=== PATIENT | male | born 1995 | race Caucasian/White ===

== ENCOUNTER 2019-05-31 09:55 | Observation (INO) ==
[2019-05-31] MEDS ORDERED: methylPREDNISolone 125 MG/2 ML VIAL IV STA (10:27)
[2019-05-31] MEDS ORDERED: ALBUT/IPRATROP 3MG/0.5MG NEB 3 ML VIAL NEB ONE (10:27)
[2019-05-31] MEDS ORDERED: SODIUM CHLORIDE 0.9% 1000ML 1,000 ML IV SCH (10:30)
[2019-05-31 10:58] LABS: Base Excess VBG 3.2 mEq/L; Basophils # (auto) 0.02 K/uL (0-0.2); Basophils % (auto) 0.2 %; Eosinophils # (auto) 0.55 K/uL (0-0.5); Eosinophils % (auto) 6.6 %; HCO3 VBG 28 mmol/L; Hematocrit (blood only) 42.1 % (42-52); Hemoglobin 14.6 g/dL (14.0-18.0); Immature Granulocytes # (auto) 0.02 K/uL (0.00-0.02); Immature Granulocytes % (auto) 0.2 %; Lymphocytes # (auto) 1.46 K/uL (1.2-3.4); Lymphocytes % (auto) 17.6 %; Mean Corpuscular Hemoglobin 31.1 pg (25-34); Mean Corpuscular Hgb Conc 34.7 g/dL (32-36); Mean Corpuscular Volume 89.8 fL (80-100); Mean Platelet Volume 10.3 fL (7.4-10.4); Monocytes # (auto) 0.69 K/uL (0.11-0.59); Monocytes % (auto) 8.3 %; Neutrophils # (auto) 5.55 K/uL (1.4-6.5); Neutrophils % (auto) 67.1 %; Oxygen Saturation VBG < 60.0 %; PCO2 VBG 42 mmHg (38-50); PO2 VBG 29 mmHg; Platelet Count 227 K/uL (130-400); RDW Coefficient of Variation 12.8 % (11.5-14.5); RDW Standard Deviation 41.4 fL (36.4-46.3); Red Blood Count 4.69 M/uL (4.7-6.1); White Blood Count 8.29 K/uL (4.8-10.8); pH VBG 7.44 (7.36-7.41)
--- NOTE | 2019-05-31 11:01 | XRay Report ---
XR chest 1V portable HISTORY: 24 years-old Male sob wheezing acute wheezing with shortness of breath COMPARISON: None available TECHNIQUE: Portable AP view of the chest FINDINGS: Cardiomediastinal and hilar silhouettes are within normal limits. Lungs are mildly hyperinflated. The re is no pneumothorax, pleural effusion, focal airspace consolidation or overt pulmonary edema. The b ones of the chest appear grossly intact. IMPRESSION: No acute process. The above report was generated using voice recognition software. It may contain grammatical, syntax o r spelling errors. Electronically signed by: Chico Davila M.D. 05/31/2019 10:59 AM
[2019-05-31 11:15] LABS: BUN Creatinine Ratio 11.9 (10-20); Calcium 8.9 mg/dl (8.5-10.1); Creatinine Clr Calc Pharmacy 93.3 ml/min; Est GFR (African American) 123.3; Est GFR (Non-African American) 106.4
[2019-05-31 12:06] LABS: Influenza A virus by PCR Neg for Influ A (Neg); Influenza B virus by PCR Neg for Influ B (Neg)
--- NOTE | 2019-05-31 12:51 | History & Physical Report ---
Date of Service May 31, 2019 Assessment & Plan (1) Asthma exacerbation: Will admit patient under observation to telemetry floor. Add IV steroids. Add Zithromax. DuoNeb breathing treatment per protocol. 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 Titrate nasal cannula oxygen to keep pulse ox more than 92%. Present on Admission?: Yes (2) Bronchial asthma: Present on Admission?: Yes (3) SOB (shortness of breath): Present on Admission?: Yes (4) Wheezing: Present on Admission?: Yes (5) Sinus tachycardia: Secondary to DuoNeb breathing treatment. Monitor on telemetry floor. Present on Admission?: Yes (6) Hypoxia: Titrate nasal cannula oxygen to keep pulse ox more than 92%. History of Present Illness Chief Complaint: Shortness of breath and wheezing Primary Care Provider: NO PCP The patient is 24-year-old male with history of bronchial asthma since childhood. He is complaining of increasing shortness of breath and wheezing since yesterday. No fever. He has occasional cough with mucoid sputum. When the EMS arrived his pulse ox was 87% on room air. The further work-up done in the ER showed that patient has asthma exa cerbation. He was started on IV steroids and DuoNeb breathing treatment and IV fluids. Patient had sinus tachycardia after DuoNeb breathing treatment. He is currently feeling better. He will be admitted under observation for further evaluation and management. He smokes hookah socially. Patient did not had any asthma attacks for the last 7 years since he moved here from [facility]. Allergies Allergy/AdvReac Type Severity Reaction Status Date / Time No Known Allergies Allergy Unverified 05/31/19 11:16 Home Medications Home Medications Medication Instructions Recorded Confirmed Type No Known Home Medications 05/31/19 05/31/19 History Past Med/Surg History Social History Feels Safe at Home: Yes Smoking Status: Current some day smoker Review of Systems Review of Systems: All systems reviewed & are unremarkable except as noted in HPI & below Respiratory: + cough, + chest congestion, + dyspnea and + wheezing Physical Exam Physical Exam: GENERAL : No acute distress EYES: No icterus, gaze conjugate NOSE: No evidence of epistaxis MOUTH: No lesions or candidiasis, mucosa moist NECK: Supple LUNGS: Decreased breath sounds at bases. Few rhonchi noted bilaterally. HEART: Regular sinus tachycardia noted. ABDOMEN: Soft, NT, ND, BS Present EXTREMITIES: No LE edema, pedal pulses intact NEURO: A&OX3 Results & Data Vital Signs (Past 12 Hours) Vital Signs Temp Pulse Pulse Resp BP Pulse Ox 05/31/19 11:01 100 05/31/19 10:51 92 H 18 99 05/31/19 10:11 94 05/31/19 10:03 98.6 F 108 H 22 137/76 93 05/31/19 10:00 104 H 19 124/85 93 Laboratory Results 05/31/19 10:42 05/31/19 10:42 05/31/19 05/31/19 05/31/19 Range/Units 11:09 10:42 10:42 WBC (4.8-10.8) K/uL RBC (4.7-6.1) M/uL Hgb (14.0-18.0) g/dL Hct (42-52) % MCV (80-100) fL MCH (25-34) pg MCHC (32-36) g/dL RDW Std Deviation (36.4-46.3) fL RDW Coeff of [place] (11.5-14.5) % Plt Count (130-400) K/uL MPV (7.4-10.4) fL Immature Gran % (Auto) % Neut % (Auto) % Lymph % (Auto) % [place] % (Auto) % Eos % (Auto) % Baso % (Auto) % Immature Gran # (Auto) (0.00-0.02) K/uL Neut # (Auto) (1.4-6.5) K/uL Lymph # (Auto) (1.2-3.4) K/uL [place] # (Auto) (0.11-0.59) K/uL Eos # (Auto) (0-0.5) K/uL Baso # (Auto) (0-0.2) K/uL VBG pH 7.44 H (7.36-7.41) VBG pCO2 42 (38-50) mmHg VBG pO2 29 mmHg VBG HCO3 28 mmol/L VBG O2 Saturation < 60.0 % VBG Base Excess 3.2 mEq/L Barometric Pressure 736.2 mm/Hg Sodium (136-145) mmol/L Potassium (3.5-5.1) mmol/L Chloride (98-107) mmol/L Carbon Dioxide (21-32) mmol/L Anion Gap (3-11) BUN (7-18) mg/dl Creatinine (0.6-1.4) mg/dl Est Cr Clr Drug Dosing ml/min Est GFR ( Amer) Est GFR (Non-Af Amer) BUN/Creatinine Ratio (10-20) Glucose (70-99) mg/dl Lactate 1.1 (0.4-2.0) mmol/L Calcium (8.5-10.1) mg/dl Influenza Type A (PCR) Neg for Influ A (Neg) Influenza Type B (PCR) Neg for Influ B (Neg) 05/31/19 05/31/19 Range/Units 10:42 10:42 WBC 8.29 (4.8-10.8) K/uL RBC 4.69 L (4.7-6.1) M/uL Hgb 14.6 (14.0-18.0) g/dL Hct 42.1 (42-52) % MCV 89.8 (80-100) fL MCH 31.1 (25-34) pg MCHC 34.7 (32-36) g/dL RDW Std Deviation 41.4 (36.4-46.3) fL RDW Coeff of [place] 12.8 (11.5-14.5) % Plt Count 227 (130-400) K/uL MPV 10.3 (7.4-10.4) fL Immature Gran % (Auto) 0.2 % Neut % (Auto) 67.1 % Lymph % (Auto) 17.6 % [place] % (Auto) 8.3 % Eos % (Auto) 6.6 % Baso % (Auto) 0.2 % Immature Gran # (Auto) 0.02 (0.00-0.02) K/uL Neut # (Auto) 5.55 (1.4-6.5) K/uL Lymph # (Auto) 1.46 (1.2-3.4) K/uL [place] # (Auto) 0.69 H (0.11-0.59) K/uL Eos # (Auto) 0.55 H (0-0.5) K/uL Baso # (Auto) 0.02 (0-0.2) K/uL VBG pH (7.36-7.41) VBG pCO2 (38-50) mmHg VBG pO2 mmHg VBG HCO3 mmol/L VBG O2 Saturation % VBG Base Excess mEq/L Barometric Pressure mm/Hg Sodium 138 (136-145) mmol/L Potassium 4.0 (3.5-5.1) mmol/L Chloride 105 (98-107) mmol/L Carbon Dioxide 27 (21-32) mmol/L Anion Gap 6.0 (3-11) BUN 12 (7-18) mg/dl Creatinine 1.00 (0.6-1.4) mg/dl Est Cr Clr Drug Dosing 93.3 ml/min Est GFR ( Amer) 123.3 Est GFR (Non-Af Amer) 106.4 BUN/Creatinine Ratio 11.9 (10-20) Glucose 85 (70-99) mg/dl Lactate (0.4-2.0) mmol/L Calcium 8.9 (8.5-10.1) mg/dl Influenza Type A (PCR) (Neg) Influenza Type B (PCR) (Neg) Diagnostic Findings XR chest 1V portable HISTORY: 24 years-old Male sob wheezing acute wheezing with shortness of breath COMPARISON: None available TECHNIQUE: Portable AP view of the chest FINDINGS: Cardiomediastinal and hilar silhouettes are within normal limits. Lungs are mildly hyperinflated. There is no pneumothorax, pleural effusion, focal airspace consolidation or overt pulmonary edema. The bones of the chest appear grossly intact. IMPRESSION: No acute process. Code Status & VTE Plan Code Status Full code VTE Prophylaxis Plan VTE Prophylaxis will be ordered: Yes PG Care Time/CCT Total # of Minutes Spent Total Time Spent with Patient: Total time spent is greater than 50% in coordination of care (as documented) at patient's floor/unit and/or counseling patient: 60 min
[2019-05-31] MEDS ORDERED: ACETAMINOPHEN 325 MG TAB PO PRN (13:25)
[2019-05-31] MEDS ORDERED: ONDANSETRON INJ 2 MG/ML 2 ML VIAL IV PRN (13:25)
[2019-05-31] MEDS ORDERED: MAGNESIUM HYDROXIDE SUSP 30 ML UDC PO PRN (13:25)
[2019-05-31] MEDS ORDERED: ALUMINUM/MAGNESIUM SUSP 30 ML UDC PO PRN (13:25)
[2019-05-31] MEDS ORDERED: INFLUENZA ADMINISTRATION CHARGE ONE (14:00)
[2019-05-31] MEDS ORDERED: INFLUENZA VIRUS QUAD VACCINE 0.5 ML SYR IM ONE (14:00)
[2019-05-31] MEDS: ENOXAPARIN INJ 30 MG/0.3 ML SYR SQ SCH (14:21)
[2019-05-31] MEDS: AZITHROMYCIN 250 MG TAB PO SCH (14:21)
[2019-05-31] MEDS: FLUTICASONE/SALMETEROL 250/50 (ADVAIR) 14 PUFF/1 INHALER INH SCH ×2 (14:22→21:22)
[2019-05-31] MEDS: ALBUT/IPRATROP 3MG/0.5MG NEB 3 ML VIAL NEB SCH ×2 (15:04→19:07)
[2019-05-31] MEDS: methylPREDNISolone 40 MG in SYRINGE 0 ML IV SCH ×2 (16:36→21:22)
--- NOTE | 2019-05-31 16:51 | Emergency Department Note ---
Entered by Johnathan Elias acting as a scribe for Abhinav Fernandez History of Present Illness General Chief complaint: Illness Time Seen by Provider: 05/31/19 10:15 Source: patient History of Present Illness Onset (ago): day(s) 2 Location: chest Pain Consistency: + other (multiple episodes) Maximum Pain Intensity: 5 Quality: + other (shortness of breath) Associated symptoms: + chest pain (slight) and + other (+throat pain; -coughing up blood) The patient is a 24 year old male, with past medical history of asthma, who presents to the Emergency Room with complaints of multiple episodes of shortness of breath over the last two days. The patient states he woke up yesterday morning with difficulty breathing. The patient states his breathing improved as yesterday progressed, but the patient notes he woke up this morning with difficu lty breathing once again. The patient also notes of slight chest pain and throat pain. The patient denies coughing up blood, recent travel, recent surgeries, or using hormones/steroid creams. The patient states he has never been intubated or been in the ICU for his asthma. The patient states that the last time he took medications for his asthma was when he was 12 years old. 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 and A total of 10 systems reviewed and were otherwise negative Physical Exam Vital Signs Vital Signs - 24 hr 05/31/19 10:00 05/31/19 10:03 05/31/19 10:11 Temperature 37 C Temperature Source Oral Sepsis Recent Fever Within 48 Hours No Sepsis Action Taken by Nursing No Action Required Pulse Rate 104 H 108 H Pulse Rate [Apical] Pulse Rate from SpO2 Sensor 103 H Respiratory Rate 19 22 Respiratory Effort / Characteristics Non-Labored Spontaneous Respiratory Depth Normal Blood Pressure 124/85 137/76 Blood Pressure [Left Arm] Blood Pressure Mean 98 96 Blood Pressure Mean [Left Arm] Blood Pressure Position Sitting Pulse Oximetry 93 93 94 Oxygen Delivery Method Room Air Room Air Nasal Cannula Oxygen Flow Rate 2 05/31/19 10:51 05/31/19 11:01 05/31/19 12:25 Temperature Temperature Source Sepsis Recent Fever Within 48 Hours Sepsis Action Taken by Nursing Pulse Rate Pulse Rate [Apical] 92 H 125 H Pulse Rate from SpO2 Sensor Respiratory Rate 18 20 Respiratory Effort / Characteristics Non-Labored Spontaneous Non-Labored Spontaneous Respiratory Depth Normal Blood Pressure Blood Pressure [Left Arm] 124/57 L Blood Pressure Mean Blood Pressure Mean [Left Arm] 79 Blood Pressure Position Pulse Oximetry 99 100 98 Oxygen Delivery Method Nasal Cannula Nebulizer Room Air Oxygen Flow Rate 2 GENERAL: He is oriented to person, place, and time. He appears well-developed and well-nourished. He does not appear distressed. HENT: Exam performed. - Head: Normocephalic and atraumatic. - Right Ear: External ear normal. No mastoid tenderness. - Left Ear: External ear normal. No mastoid tenderness. - Mouth/Throat: The oropharynx is clear and moist. No trismus in the jaw. No dental abscesses or uvula swelling. No oropharyngeal exudate or tonsillar abscesses. EYES: Conjunctivae and EOM are normal. Pupils are equal, round, and reactive to light. Right eye exhibits no discharge. Left eye exhibits no discharge. No scleral icterus. NECK: Normal range of motion. Neck supple. No JVD present. No spinous process tenderness present. No carotid bruit present. No rigidity. No tracheal deviation and normal range of motion present. No Brudzinski's sign and no Kernig's sign noted. CV: Normal rate, regular rhythm, normal heart sounds and intact distal pulses. There is no peripheral edema. Palpable radial pulses bue. PULM/CHEST: Effort normal. No respiratory distress. No stridor. Bilateral expiratory wheezes. He has no rales. - Chest Wall: He exhibits no tenderness. ABD: The abdomen is soft. Bowel sounds are normal. He has no distension. No mass is present. There is no tenderness. There is no rebound, no guarding, no Irving's sign and no tenderness at McBurney's point. Rovsig negative. MUSC/SKEL: Normal range of motion. There is no peripheral edema, tenderness or deformity. LYMPH: No cervical adenopathy. NEURO: He is alert and oriented to person, place, and time. He has normal strength. No cranial nerve deficit or sensory deficit. Coordination and gait normal. GCS eye subscore is 4. GCS verbal subscore is 5. GCS motor subscore is 6. Cerebellar tests wnl. SKIN: Skin is warm and dry. He is not diaphoretic. PSYCH: He has a normal mood and affect. Behavior is normal. Judgment and thought content normal. Course 1024: Past medical records reviewed. The patient was evaluated in room C10. A complete history and physical exam was performed. Patient was found to be hypoxic on room air. He was placed on supplemental oxygen via nasal cannula which improved his oxygen saturation. Patient has severe bilateral wheezing. We will give the patient hour-long DuoNeb treatment as well as steroids and then reassess the patient. 1214: Status post hour long Duoneb - Patient's wheezing has improved, however still scant bilateral expiratory wheezes noted. He is tachycardic. The patient's lab and imaging are within normal limits. The patient will be admitted for status asthmaticus. I reviewed the patient's case with Dr. Nobles-[facility] Hospitalist. Dr. Nobles will evaluate the patient for further management. Consultations Consultation #1: I reviewed the patient's case with Dr. Nobles-[facility] Hospitalist. Dr. Nobles will evaluate the patient for further management. Time: 12:16 Administered Medications Albuterol (Duoneb) 3 ml NEB QIDR [facility] Stop: 06/30/19 14:59 Last Admin: 05/31/19 15:04 Dose: 3 ml Documented by: [id number] Azithromycin (Zithromax) 500 mg PO QAM [facility] Stop: 06/07/19 13:59 Last Admin: 05/31/19 14:21 Dose: 500 mg Documented by: [id number] Enoxaparin Sodium (Lovenox) 30 mg SQ Q24H ROLA Stop: 06/30/19 13:59 Last Admin: 05/31/19 14:21 Dose: 30 mg Documented by: [id number] Methylprednisolone 40 mg/ (Syringe) 0.64 mls @ 1.5 mls/min IV Q6H ROLA Stop: 06/30/19 15:59 Last Admin: 05/31/19 16:36 Dose: 1.5 mls/min Documented by: [id number] Fluticasone/Salmeterol (Advair Diskus 250/50) 1 puffs INH BID ROLA Stop: 06/30/19 13:24 Last Admin: 05/31/19 14:22 Dose: 1 puffs Documented by: [id number] Discontinued Medications Albuterol (Duoneb) 12 ml NEB ONE ONE Stop: 05/31/19 10:28 Last Admin: 05/31/19 10:51 Dose: 12 ml Documented by: [id number] Sodium Chloride (Nss 1000ml) 1,000 mls @ 125 mls/hr IV .Q8H ROLA Stop: 06/30/19 10:29 Last Infusion: 05/31/19 13:12 Dose: 0 mls/hr Documented by: [id number] Admin: 05/31/19 11:06 Dose: 125 mls/hr Documented by: [id number] Methylprednisolone (Solumedrol) 125 mg IV NOW STA Stop: 05/31/19 10:28 Last Admin: 05/31/19 11:06 Dose: 125 mg Documented by: [id number] Medical Decision Making Medical Records Attestation: I reviewed the patient's medical records. Home Medications Current Medication List: was personally reviewed by me Laboratory Data Attestation: I reviewed the patient's lab results. Result diagrams: 05/31/19 10:42 05/31/19 10:42 Lab Results 05/31/19 05/31/19 05/31/19 Range/Units 10:42 10:42 10:42 WBC 8.29 (4.8-10.8) K/uL RBC 4.69 L (4.7-6.1) M/uL Hgb 14.6 (14.0-18.0) g/dL Hct 42.1 (42-52) % MCV 89.8 (80-100) fL MCH 31.1 (25-34) pg MCHC 34.7 (32-36) g/dL RDW Std Deviation 41.4 (36.4-46.3) fL RDW Coeff of [place] 12.8 (11.5-14.5) % Plt Count 227 (130-400) K/uL MPV 10.3 (7.4-10.4) fL Immature Gran % (Auto) 0.2 % Neut % (Auto) 67.1 % Lymph % (Auto) 17.6 % [place] % (Auto) 8.3 % Eos % (Auto) 6.6 % Baso % (Auto) 0.2 % Immature Gran # (Auto) 0.02 (0.00-0.02) K/uL Neut # (Auto) 5.55 (1.4-6.5) K/uL Lymph # (Auto) 1.46 (1.2-3.4) K/uL [place] # (Auto) 0.69 H (0.11-0.59) K/uL Eos # (Auto) 0.55 H (0-0.5) K/uL Baso # (Auto) 0.02 (0-0.2) K/uL VBG pH (7.36-7.41) VBG pCO2 (38-50) mmHg VBG pO2 mmHg VBG HCO3 mmol/L VBG O2 Saturation % VBG Base Excess mEq/L Barometric Pressure mm/Hg Sodium 138 (136-145) mmol/L Potassium 4.0 (3.5-5.1) mmol/L Chloride 105 (98-107) mmol/L Carbon Dioxide 27 (21-32) mmol/L Anion Gap 6.0 (3-11) BUN 12 (7-18) mg/dl Creatinine 1.00 (0.6-1.4) mg/dl Est Cr Clr Drug Dosing 93.3 ml/min Est GFR ( Amer) 123.3 Est GFR (Non-Af Amer) 106.4 BUN/Creatinine Ratio 11.9 (10-20) Glucose 85 (70-99) mg/dl Lactate 1.1 (0.4-2.0) mmol/L Calcium 8.9 (8.5-10.1) mg/dl Influenza Type A (PCR) (Neg) Influenza Type B (PCR) (Neg) 05/31/19 05/31/19 Range/Units 10:42 11:09 WBC (4.8-10.8) K/uL RBC (4.7-6.1) M/uL Hgb (14.0-18.0) g/dL Hct (42-52) % MCV (80-100) fL MCH (25-34) pg MCHC (32-36) g/dL RDW Std Deviation (36.4-46.3) fL RDW Coeff of [place] (11.5-14.5) % Plt Count (130-400) K/uL MPV (7.4-10.4) fL Immature Gran % (Auto) % Neut % (Auto) % Lymph % (Auto) % [place] % (Auto) % Eos % (Auto) % Baso % (Auto) % Immature Gran # (Auto) (0.00-0.02) K/uL Neut # (Auto) (1.4-6.5) K/uL Lymph # (Auto) (1.2-3.4) K/uL [place] # (Auto) (0.11-0.59) K/uL Eos # (Auto) (0-0.5) K/uL Baso # (Auto) (0-0.2) K/uL VBG pH 7.44 H (7.36-7.41) VBG pCO2 42 (38-50) mmHg VBG pO2 29 mmHg VBG HCO3 28 mmol/L VBG O2 Saturation < 60.0 % VBG Base Excess 3.2 mEq/L Barometric Pressure 736.2 mm/Hg Sodium (136-145) mmol/L Potassium (3.5-5.1) mmol/L Chloride (98-107) mmol/L Carbon Dioxide (21-32) mmol/L Anion Gap (3-11) BUN (7-18) mg/dl Creatinine (0.6-1.4) mg/dl Est Cr Clr Drug Dosing ml/min Est GFR ( Amer) Est GFR (Non-Af Amer) BUN/Creatinine Ratio (10-20) Glucose (70-99) mg/dl Lactate (0.4-2.0) mmol/L Calcium (8.5-10.1) mg/dl Influenza Type A (PCR) Neg for Influ A (Neg) Influenza Type B (PCR) Neg for Influ B (Neg) Imaging Data Radiologist's Impression: Radiology results as stated below per my review and the radiologist's interpretation: XR chest 1V portable HISTORY: 24 years-old Male sob wheezing acute wheezing with shortness of breath COMPARISON: None available TECHNIQUE: Portable AP view of the chest FINDINGS: Cardiomediastinal and hilar silhouettes are within normal limits. Lungs are mildly hyperinflated. There is no pneumothorax, pleural effusion, focal airspace consolidation or overt pulmonary edema. The bones of the chest appear grossly intact. IMPRESSION: No acute process. The above report was generated using voice recognition software. It may contain grammatical, syntax or spelling errors. Electronically signed by: Chico Davila M.D. 05/31/2019 10:59 AM ECG Data Attestation: I personally reviewed and interpreted this ECG as follows: Indication: SOB/dyspnea Rate (beats per minute): 100 Rhythm: sinus rhythm Findings: + other ([place]/QRS/QT within normal limits; peaked T waves in lead 3 or [address] ); no ST depression and no ST elevation Blood Pressure Blood Pressure Findings: Low blood pressure Blood Pressure Disposition: further management by hospitalist AILYN Narrative 1024: Past medical records reviewed. The patient was evaluated in room C10. A complete history and physical exam was performed. Patient was found to be hypoxic on room air. He was placed on supplemental oxygen via nasal cannula which improved his oxygen saturation. Patient has severe bilateral wheezing. We will give the patient hour-long DuoNeb treatment as well as steroids and then reassess the patient. 1214: Status post hour long Duoneb - Patient's wheezing has improved, however still scant bilateral expiratory wheezes noted. He is tachycardic. The patient's lab and imaging are within normal limits. The patient will be admitted for status asthmaticus. I reviewed the patient's case with Dr. Nobles-[facility] Hospitalist. Dr. Nobles will evaluate the patient for further management. Impression & Plan Hypoxia, Asthmaticus, status Critical Care Time Critical Care Time: Yes Total Critical Care Time: 61 I have personally spent 61 minutes of critical care time in the direct management of this patient. This includes bedside care, interpretation of diagnostic studies, and testing, discussion with consultants, patient, and family members, and other required patient management activities. This 61 minutes is in excess of all separately billable procedures. Discharge Plan Visit Data *Final* Discharge Date/Time: 05/31/19 12:51 Chief Complaint: Illness ED Provider: Abhinav Fernandez Discharge Problem: Hypoxia, Asthmaticus, status Patient Disposition: Admitted As Inpatient Discharge Instructions Interventions: ED Discharge Assessment Last Done: 05/31/19 12:51 The scribe's documentation has been prepared under my direction and personally reviewed by me in its entirety. I confirm that the note above accurately refle cts all work, treatment, procedures, and medical decision making performed by me.
[2019-06-01] MEDS: methylPREDNISolone 40 MG in SYRINGE 0 ML IV SCH ×2 (04:56→10:58)
[2019-06-01] MEDS: ALBUT/IPRATROP 3MG/0.5MG NEB 3 ML VIAL NEB SCH ×3 (07:08→15:11)
[2019-06-01] MEDS: AZITHROMYCIN 250 MG TAB PO SCH (08:32)
[2019-06-01] MEDS: FLUTICASONE/SALMETEROL 250/50 (ADVAIR) 14 PUFF/1 INHALER INH SCH (08:32)
[2019-06-01 11:58] VITALS: BP 137/69; TEMP 98.4
[2019-06-01] MEDS: ENOXAPARIN INJ 30 MG/0.3 ML SYR SQ SCH (14:41)
[2019-06-01 15:12] VITALS: O2SAT 100
[2019-06-01 15:47] VITALS: PULSE 73
--- NOTE | 2019-06-01 18:10 | Discharge Summary ---
Date of Service June 01, 2019 Admission HPI Per Admitting Provider The patient is 24-year-old male with history of bronchial asthma since childhood. He is complaining of increasing shortness of breath and wheezing since yesterday. No fever. He has occasional cough with mucoid sputum. When the EMS arrived his pulse ox was 87% on room air. The further work-up done in the ER showed that patient has asthma exacerbation. He was started on IV steroids and DuoNeb breathing treatment and IV fluids. Patient had sinus tachycardia after DuoNeb breathing treatment. He is currently feeling better. He will be admitted under observation for further evaluation and management. He smokes hookah socially. Patient did not had any asthma attacks for the last 7 years since he moved here from [facility]. Admission Exam Per Admitting Provider GENERAL : No acute distress EYES: No icterus, gaze conjugate NOSE: No evidence of epistaxis MOUTH: No lesions or candidiasis, mucosa moist NECK: Supple LUNGS: Decreased breath sounds at bases. Few rhonchi noted bilaterally. HEART: Regular sinus tachycardia noted. ABDOMEN: Soft, NT, ND, BS Present EXTREMITIES: No LE edema, pedal pulses intact NEURO: A&OX3 Principal Diagnosis Asthma Exacerbation Discharge Exam Constitutional WD/WN, vitals as above Eyes PERRL, conjunctivae normal, anicteric sclerae ENMT external ear and nose normal, oropharynx normal Neck trachea midline, no thyromegaly Respiratory normal respiratory effort, lungs clear to auscultation Cardiovascular RRR, no murmur, no edema Gastrointestinal (Abdomen) normal bowel sounds, soft, nontender, no hepatosplenomegaly Musculoskeletal no cyanosis or clubbing, extremities motor strength 5/5 Skin no rashes, warm and dry Neurologic PERRL, EOMI, accommodation nl, no face palsy, no dysarthria Psychiatric A+Ox3, euthymic affect Discharge Data Allergies Allergy/AdvReac Type Severity Reaction Status Date / Time No Known Allergies Allergy Unverified 05/31/19 11:16 Consultations 05/31/19 12:15 ED Decision to Admit Stat Hospital Course (1) Asthma exacerbation: Patient is a 24 year old male that presented with shortness of breath of 2 days duration that worsened earlier that morning. Asthma Exacerbation -Patient was treated with steroids and nebulizer treatments while in the ED. -Patient was admitted to the telemetry floor. -IV Steroids, Zithromax, and Duoneb treatments on the floor with titrated cannula oxygen. -Patient noted significant improvement by the AM -DC'd with Albuterol rescue inhaler and 21 day course of prednisone taper. (2) Bronchial asthma: (3) SOB (shortness of breath): (4) Wheezing: (5) Sinus tachycardia: (6) Hypoxia: Total Time Total Time Spent Total Time Spent (In Minutes): <30 Discharge Plan Discharge Items Patient Disposition: Home - Self-Care Reason For Visit: ASTHMA, SOB Discharge Diagnosis: Asthma Exacerbation - Status Asthmaticus Condition on Discharge: Good Activity: Resume your previous activity Non-emergency contact: Primary Care Provider Call non-emergency contact if: you have any medication questions and your symptoms worsen Follow-up/Referrals: [facility] [Non-Staff] - 06/07/19 11:00 am (Please, follow up at [facility] on FridayJune 07 at 11:[address] Brandon Gipson. *If you need to change/cancel this appointment, call the office at [phone].) Diet: Regular Addtl Attending Provider Instructions: Mr. Mcdonald, you were seen at [facility] after experiencing over 2 days of increasing shortness of breath, chest pain, and throat pain. While in the ED you were given IV steroids and Nebulizers (DuoNeb) that helped to improve your breathing significantly, however, your heart rate rapidly increased from the treatments. You were admitted to the hospital for monitoring and further treatments of your asthma. You did note a history of asthma and stated you had asthma attacks almost monthly from ages [age], but haven't had anymore since moving to the [facility] roughly 7 years ago. You also noted hookah use the day prior to the onset of your symptoms that may have exacerbated your symptoms. You note that you are feeling significantly better this morning and are not having any difficulty breathing. Please follow the below instructions upon discharge: -Recommend that you follow up with your PCP within the next 1 week upon discharge, please call to make an appointment. 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 Pending Studies at Discharge: No Stand-Alone Forms: My [facility], Work/School Release (Inpt), Smoking Cessation Medications and DC Order Prescriptions: New albuterol sulfate 90 mcg/actuation aerosol powdr breath activated 2 puffs INH .Q4-Q6 PRN (Reason: shortness of breath or wheezing) Qty: 1 RF: 2 prednisone 10 mg tablet 10 mg PO UD Qty: 21 RF: 0 No Action No Known Home Medications RF: 0 Discharge Orders: Discharge Order (Routine); Ordered 06/01/19 Ordered By: Kanu Walker Admission Data Admit Date/Time: 05/31/19 12:33 Attending Provider: Primitivo Dixon Admit Provider: Hai Nobles Primary Care Provider: Brandon Gipson Other Providers: Hai Nobles Other Interventions: Discharge Summary Assessment (RN) Last Done: 06/01/19 15:46 DC Date/Time DO NOT enter until pt leaves facility: 06/01/19 15:47 Supervising Physician Co-Signing Physician Notes I personally examined the patient and verified all beard points of history and exam, discussed case, and agree with decision making with Dr Walker. Feeling better. Breathing better. Has not had an asthma exacerbation and probably a decade. Discussed current situation, all questions answered to the best my ability. In general he is awake and alert pleasant no distress. HEENT normocephalic atraumatic mucous membranes moist. Lungs are clear to auscultation bilaterally no rales rhonchi or wheezes with good effort and good air entry, no accessory muscle use. Asthma exacerbationgiven that he has been doing well for quite a while, and we are having a fairly severe viral respiratory season already, I suspect that his long quiescent and asthma flared in response to a fairly inflammatory respiratory virus. Improving nicely, stable for home. Tapering prednisone, albuterol as needed, established with a PCP locally for close follow-up. Otherwise as above Resident Activity Tracking Resident Involvement: Resident Care Provided Care Provided: Adult Hospital Medicine
== END 2019-06-01 15:47 | disposition home or self-care (01) ==
LOC: 2S 09:55 → ED 09:55 → SUATTDRO 12:33 → 2S 12:51
DX: J45.901 Unspecified asthma with (acute) exacerbation; R00.0 Tachycardia, unspecified; F17.210 Nicotine dependence, cigarettes, uncomplicated